=== PATIENT | female | born 1965 | race Caucasian/White ===

== ENCOUNTER 2018-08-08 20:01 | Emergency (ER) | payer OTHER ==
[~2018-08-08] VITALS: Ht 160 cm; Wt 66.4 kg
--- NOTE | 2018-08-08 20:20 | NUR ---
PT BIB FAMILY WITH C/O "NOT FEELING RIGHT". STATES SKIN IS CRAWLING AND FEELING OF PRESSURE IN CHEST. PT RECENTLY STARTED PREDNISONE AND ZPAK FOR STREP THROAT. 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 PRESENTS ANXIOUS BUT NO S/S OF ACUTE RESP DISTRESS. NO RASH NOTED. PT SINUS TACHY ON MONITOR, OTHERWISE VSS.
--- NOTE | 2018-08-08 20:40 | NUR ---
LAB AT BEDSIDE TO DRAW. PT REQUESTING THYROID TESTING WELL. DISCUSSED WITH PA AND ORDERS RECEIVED. PT RESTING WITH NO NEEDS EXPRESSED. PT STATES TINGLING AND "NOT FEELING RIGHT" COMES IN WAVES AT THIS TIME. REMAINS SINUS TACHY ON MONITOR. NO S/S OF ACUTE DISTRESS. CALL LIGHT IN REACH.
[2018-08-08 20:54] LABS: MEAN CORPUSCULAR HEMOGLOBIN 33.1 pg (27.0-34.8); MEAN CORPUSCULAR VOLUME 97.4 fL (80-100); MEAN PLATELET VOLUME 7.5 fL (7.4-10.4); PLATELET COUNT 266 x10^3/uL (130-400); RED BLOOD COUNT 4.48 x10^6/uL (3.82-5.3); RED CELL DISTRIBUTION WIDTH 12.6 % (9.6-15.2)
[2018-08-08 21:05] LABS: ALANINE AMINOTRANSFERASE 30 U/L (12-78); ALBUMIN 3.5 g/dL (3.4-5.0); ANION GAP 6 mmol/L (5-15); CALCIUM 8.3 mg/dL (8.5-10.1); CHLORIDE 109 mmol/L (98-107); CREATININE 0.74 mg/dL (0.55-1.02)
[2018-08-08 21:09] LABS: ALKALINE PHOSPHATASE 91 U/L (45-117); BILIRUBIN,TOTAL 0.2 mg/dL (0.2-1.0); TOTAL PROTEIN 7.5 g/dL (6.4-8.2); TROPONIN I < 0.015 ng/mL (0.000-0.045)
[2018-08-08 21:35] LABS: BASOPHILS # (AUTO) 0.09 x10^3/uL (0-0.1); BASOPHILS % (AUTO) 1 % (0-1); EOSINOPHILS % (AUTO) 0 % (1-7); LYMPHOCYTES # (AUTO) 0.48 x10^3/uL (1-3.4); LYMPHOCYTES % (AUTO) 4 % (22-44); MD SCAN; MONOCYTES # (AUTO) 0.08 x10^3/uL (0.2-0.8); MONOCYTES % (AUTO) 1 % (2-9); NEUTROPHILS # (AUTO) 12.66 x10^3/uL (1.8-6.8); NEUTROPHILS % (AUTO) 95 % (42-75)
--- NOTE | 2018-08-08 21:40 | NUR ---
pt up to br with steady gait. VS improving. Awaiting lab results--pt updated to POC. Call light in reach.
[2018-08-08 22:41] VITALS: BP 122/60
[2018-08-08 22:47] LABS: FREE T4 (FREE THYROXINE) 1.17 ng/dL (0.76-1.46)
== END 2018-08-08 22:44 | disposition home or self-care (01) ==
LOC: ED 21:36
DX: R07.9 Chest pain, unspecified (principal); E03.9 Hypothyroidism, unspecified; F41.9 Anxiety disorder, unspecified
CPT/HCPCS: 36415; 71045; 80053; 84439; 84443; 84481; 84484; 85025; 93005; 99284

== ENCOUNTER 2019-07-28 06:45 | Day surgery (SDC) | payer OTHER ==
[~2019-07-28] VITALS: Ht 161.3 cm; Wt 64.4 kg
[2019-07-28] MEDS ORDERED: EPHEDRINE 50 MG/ML, 1ML IVPush PRN (07:00)
[2019-07-28] MEDS ORDERED: LABETALOL 5MG/ML, 20ML IV PRN (07:00)
[2019-07-28] MEDS ORDERED: MEPERIDINE/PF 25MG/ML,1ML IVPush PRN (07:00)
[2019-07-28] MEDS ORDERED: HYDROmorphone 2 MG/ML, 1ML IVPush PRN (07:00)
[2019-07-28] MEDS ORDERED: hydrALAzine 20 MG/ML, 1ML IV PRN (07:00)
[2019-07-28] MEDS ORDERED: PROMETHAZINE 25 MG/ML, 1ML IV PRN (07:00)
[2019-07-28] MEDS ORDERED: OXYcodone 5 MG/5 ML ORAL.SOL UDC PO PRN (07:00)
[2019-07-28] MEDS ORDERED: BUPIVACAINE/PF 0.5% ONE (07:12)
[2019-07-28] MEDS ORDERED: INDOCYANINE GREEN 25 MG VIAL ONE (07:12)
[2019-07-28] MEDS ORDERED: EPINEPHRINE 1 MG/ML, 1ML ONE (07:12)
[2019-07-28] MEDS ORDERED: HYOS0.1281 SL (07:29)
[2019-07-28] MEDS ORDERED: LIOT5TAB10 PO (07:29)
[2019-07-28] MEDS ORDERED: LEVO88TA43 PO (07:30)
[2019-07-28] MEDS ORDERED: LOPE-114 PO (07:30)
[2019-07-28] MEDS ORDERED: LACTATED RINGERS 1,000 ML IV SCH (07:35)
[2019-07-28 07:36] VITALS: BP 115/76
[2019-07-28] MEDS ORDERED: ACETAMINOPHEN 500 MG TABLET ONE (07:52)
[2019-07-28] MEDS ORDERED: ACETAMINOPHEN 500 MG TABLET PO ONE (08:00)
[2019-07-28 08:12] LABS: HCG UR SG 1.034 (1.003-1.030)
[2019-07-28] MEDS ORDERED: MIDAZOLAM 1 MG/ML, 2ML ONE (08:22)
[2019-07-28] MEDS ORDERED: FENTANYL PF 100 MCG/2ML ONE ×2 (08:22→10:03)
[2019-07-28] MEDS ORDERED: NEOSTIGMINE 1 MG/ML, 10ML ONE (08:46)
[2019-07-28] MEDS ORDERED: ONDANSETRON 2MG/ML, 2ML ONE ×2 (08:46→10:03)
[2019-07-28] MEDS ORDERED: SUCCINYLCHOLINE 20 MG/ML, 10ML ONE (08:46)
[2019-07-28] MEDS ORDERED: PROPOFOL 10 MG/ML, 20ML ONE ×2 (08:46→08:47)
[2019-07-28] MEDS ORDERED: GLYCOPYRROLATE 0.2MG/1ML, 5ML ONE (08:46)
[2019-07-28] MEDS ORDERED: CEFAZOLIN 1,000 MG ONE (08:46)
[2019-07-28] MEDS ORDERED: ROCURONIUM 10MG/ML,5ML ONE (08:46)
[2019-07-28] MEDS ORDERED: DEXAMETHASONE 4 MG/ML, 1ML ONE (08:46)
[2019-07-28] MEDS ORDERED: INDOCYANINE GREEN 25 MG VIAL IV ONE (09:00)
[2019-07-28] MEDS ORDERED: KETOROLAC 30 MG/1 ML ONE (09:00)
[2019-07-28] MEDS ORDERED: LIDOCAINE-MPF 2% ,5ML ONE (09:00)
[2019-07-28] MEDS ORDERED: OXYcodone 5 MG/5 ML ORAL.SOL UDC ONE (10:04)
[2019-07-28] MEDS: ONDANSETRON 2MG/ML, 2ML IV PRN ×2 (10:06→12:59)
[2019-07-28] MEDS: FENTANYL PF 100 MCG/2ML IV PRN ×3 (10:08→10:23)
[2019-07-28] MEDS ORDERED: HYDROmorphone 1 MG/ML, 1ML INJ ONE (10:25)
== END 2019-07-28 14:50 | disposition home or self-care (01) ==
LOC: OR 06:45
PROVIDERS: ATTEND Surgery
DX: K80.10 Calculus of gallbladder with chronic cholecystitis without obstruction (principal); K66.0 Peritoneal adhesions (postprocedural) (postinfection); E03.9 Hypothyroidism, unspecified; Z79.890 Hormone replacement therapy; Z88.2 Allergy status to sulfonamides; Z83.3 Family history of diabetes mellitus
CPT/HCPCS: 47563; 74300; 81025; 88304; J0171; J0330; J0690; J1100; J1170; J1885; J2250; J2405; J2704; J2710; J3010; J7120; S2900